=== PATIENT | female | born 1990 | race Caucasian/White ===

== ENCOUNTER 2017-04-26 14:27 | Emergency (ER) | payer MEDICAID ==
[~2017-04-26] VITALS: Ht 165.1 cm; Wt 67.3 kg
[~2017-04-26 14:27] MED LIST: ONDA4TAB6 PO
[2017-04-26 15:10] LABS: BASOPHILS % (AUTO) 0.4 % (0-1); EOSINOPHILS # (AUTO) 0.2 X10'3 (0-0.9); EOSINOPHILS % (AUTO) 2.8 % (0-6); HEMATOCRIT 38.4 % (35.0-45.0); HEMOGLOBIN 12.9 g/dl (12.0-16.0); LYMPHOCYTES # (AUTO) 2.6 X10'3 (1.1-4.8); MEAN CORPUSCULAR HGB CONC 33.6 % (33.0-36.5); MEAN CORPUSCULAR VOLUME 80.6 FL (78-98); MEAN PLATELET VOLUME 7.4 FL (7.4-10.4); MONOCYTES # (AUTO) 0.5 X10'3 (0-0.9); MONOCYTES % (AUTO) 5.7 % (2-12); NEUTROPHILS # (AUTO) 4.8 X10'3 (1.8-7.7); NEUTROPHILS % (AUTO) 59.1 % (42-75); PLATELET COUNT 350 X10'3 (140-440); RED BLOOD COUNT 4.76 X10'6 (4.20-5.60); RED CELL DISTRIBUTION WIDTH 15.4 % (11.5-14.5); WHITE BLOOD COUNT 8.1 X10'3 (4.5-11.0)
[2017-04-26 15:21] LABS: INR 1.1 INR; PARTIAL THROMBOPLASTIN TIME 25 SECONDS (22-32)
[2017-04-26 15:26] LABS: ALANINE AMINOTRANSFERASE 41 U/L (12-78); ALKALINE PHOSPHATASE 76 IU/L (46-116); ANION GAP 9 (8-16); ASPARTATE AMINO TRANSFERASE 18 U/L (10-37); BILIRUBIN,TOTAL 0.2 MG/DL (0.1-1.0); BLOOD UREA NITROGEN 9 MG/DL (7-18); BUN/CREATININE RATIO 14.8 (6.6-38.0); CALCIUM 9.3 MG/DL (8.5-10.1); CHLORIDE 107 MMOL/L (99-107); CREATININE 0.61 MG/DL (0.40-0.90); GLUCOSE 101 MG/DL (70-104); POTASSIUM 3.8 MMOL/L (3.5-5.1); SODIUM 143 MMOL/L (135-145); TOTAL CARBON DIOXIDE 26.9 MMOL/L (24-32); TOTAL PROTEIN 8.2 G/DL (6.4-8.2); eGFR > 90 ML/MIN
[2017-04-26 15:35] LABS: URINE HCG POSITIVE (NEG)
[2017-04-26 15:39] LABS: CLARITY,URINE CLEAR (Clear); COLOR,URINE YELLOW (Yellow); GLUCOSE, URINE NEGATIVE (Neg); KETONES,URINE NEGATIVE (Neg); LEUKOCYTE ESTERASE ,URINE NEGATIVE (Neg); NITRITES, URINE NEGATIVE (Neg); OCCULT BLOOD,URINE TRACE-INTACT (Neg); PH,URINE 5.5 (4.8-8.0); PROTEIN,URINE NEGATIVE (Neg); UROBILINOGEN,URINE 0.2 E.U/dL (0.2-1.0)
[2017-04-26 15:45] LABS: UA COLLECTION TYPE CLN CATCH MIDSTREAM
[2017-04-26 15:46] LABS: WBC,URINE 0-4 /HPF (0-4)
[2017-04-26 15:47] LABS: BACTERIA,URINE 3+ /HPF (Neg); MUCUS STRANDS MODERATE /LPF (Neg); RBC,URINE 0-2 /HPF (0-2); SQUAMOUS EPITHELIAL CELL,UR MANY /LPF (FEW)
[2017-04-26 15:50] LABS: URINE AMPHETAMINE SCREEN NEGATIVE (Neg); URINE BARBITUATE SCREEN NEGATIVE (Neg); URINE BENZODIAZEPINES SCREEN NEGATIVE (Neg); URINE CANNABINOID SCREEN NEGATIVE (Neg); URINE COCAINE SCREEN NEGATIVE (Neg); URINE METHADONE SCREEN NEGATIVE (Neg); URINE OPIATE SCREEN NEGATIVE (Neg); URINE PHENCYCLIDINE SCREEN NEGATIVE (Neg)
[2017-04-26 16:08] LABS: BETA HCG,QUANTITATIVE 3354 mIU/ml
[2017-04-26 16:48] VITALS: BP 119/53
== END 2017-04-26 16:50 | disposition home or self-care (01) ==
LOC: ER 14:28
DX: O46.92 Antepartum hemorrhage, unspecified, second trimester (principal); R30.0 Dysuria; R11.0 Nausea; Z79.899 Other long term (current) drug therapy; Z3A.20 20 weeks gestation of pregnancy
CPT/HCPCS: 36415; 76817; 80053; 80305; 81001; 81025; 84702; 85025; 85610; 85730; 86900; 86901; 99285

== ENCOUNTER 2017-04-29 11:09 | Emergency (ER) | payer MEDICAID ==
[~2017-04-29] VITALS: Ht 165.1 cm; Wt 63.0 kg
[2017-04-29 11:39] VITALS: BP 115/66
[2017-04-29 12:03] LABS: URINE HCG POSITIVE (NEG)
[2017-04-29 12:07] LABS: CLARITY,URINE SLIGHTLY CLOUDY (Clear); COLOR,URINE YELLOW (Yellow); GLUCOSE, URINE NEGATIVE (Neg); KETONES,URINE NEGATIVE (Neg); LEUKOCYTE ESTERASE ,URINE NEGATIVE (Neg); NITRITES, URINE NEGATIVE (Neg); OCCULT BLOOD,URINE LARGE (Neg); PH,URINE 6.5 (4.8-8.0); PROTEIN,URINE NEGATIVE (Neg); UROBILINOGEN,URINE 0.2 E.U/dL (0.2-1.0)
[2017-04-29 12:16] LABS: UA COLLECTION TYPE VOIDED
[2017-04-29 12:18] LABS: BACTERIA,URINE NONE SEEN /HPF (Neg); MUCUS STRANDS NONE SEEN /LPF (Neg); RBC,URINE 20-50 /HPF (0-2); SQUAMOUS EPITHELIAL CELL,UR FEW /LPF (FEW); WBC,URINE 0-4 /HPF (0-4)
[2017-04-29 14:03] LABS: BASOPHILS % (AUTO) 0.5 % (0-1); EOSINOPHILS # (AUTO) 0.1 X10'3 (0-0.9); EOSINOPHILS % (AUTO) 1.8 % (0-6); HEMATOCRIT 39.4 % (35.0-45.0); LYMPHOCYTES # (AUTO) 3.1 X10'3 (1.1-4.8); LYMPHOCYTES % (AUTO) 38.9 % (21-51); MEAN CORPUSCULAR HEMOGLOBIN 26.9 PG (27.0-31.0); MEAN CORPUSCULAR VOLUME 81.4 FL (78-98); MEAN PLATELET VOLUME 7.4 FL (7.4-10.4); MONOCYTES # (AUTO) 0.4 X10'3 (0-0.9); MONOCYTES % (AUTO) 4.8 % (2-12); NEUTROPHILS # (AUTO) 4.2 X10'3 (1.8-7.7); PLATELET COUNT 353 X10'3 (140-440); RED BLOOD COUNT 4.84 X10'6 (4.20-5.60); WHITE BLOOD COUNT 7.9 X10'3 (4.5-11.0)
[2017-04-29 14:37] LABS: ALANINE AMINOTRANSFERASE 40 U/L (12-78); ALBUMIN 4.1 G/DL (3.4-5.0); ALBUMIN/GLOBULIN RATIO 1.1 (1.1-1.5); ALKALINE PHOSPHATASE 70 IU/L (46-116); ANION GAP 10 (8-16); ASPARTATE AMINO TRANSFERASE 17 U/L (10-37); BILIRUBIN,TOTAL 0.3 MG/DL (0.1-1.0); BLOOD UREA NITROGEN 8 MG/DL (7-18); BUN/CREATININE RATIO 13.6 (6.6-38.0); CALCIUM 9.1 MG/DL (8.5-10.1); CHLORIDE 107 MMOL/L (99-107); CREATININE 0.59 MG/DL (0.40-0.90); GLUCOSE 102 MG/DL (70-104); POTASSIUM 3.6 MMOL/L (3.5-5.1); SODIUM 143 MMOL/L (135-145); TOTAL CARBON DIOXIDE 26.5 MMOL/L (24-32); TOTAL PROTEIN 7.9 G/DL (6.4-8.2); eGFR > 90 ML/MIN
[2017-04-29 14:38] LABS: BETA HCG,QUANTITATIVE 3832 mIU/ml
== END 2017-04-29 15:27 | disposition home or self-care (01) ==
LOC: ER 11:09
DX: O20.0 Threatened abortion (principal); Z3A.01 Less than 8 weeks gestation of pregnancy; Z98.890 Other specified postprocedural states
CPT/HCPCS: 36415; 80053; 81001; 81025; 84702; 85025; 99284

== ENCOUNTER 2017-05-01 15:09 | Emergency (ER) | payer MEDICAID ==
[~2017-05-01] VITALS: Ht 165.1 cm; Wt 67.0 kg
[2017-05-01 16:14] VITALS: BP 124/73
== END 2017-05-01 16:50 | disposition home or self-care (01) ==
LOC: ER 15:10
DX: O03.9 Complete or unspecified spontaneous abortion without complication (principal)
CPT/HCPCS: 36415; 84702; 99283

== ENCOUNTER → 2017-05-06 | Emergency (ER) | payer MEDICAID ==
[~2017-05-06] VITALS: Ht 165.1 cm; Wt 68.1 kg
[~2017-05-06] MED LIST changes: +morphine 4 MG/ML inj SYRINge IV ONE; +normal saline 1000ML IV soln IVB ONE; +ondansetron/PF 4mg/2ml inj IV ONE
[2017-05-06 20:16] LABS: BASOPHILS # (AUTO) 0.1 X10'3 (0-0.2); BASOPHILS % (AUTO) 0.5 % (0-1); EOSINOPHILS # (AUTO) 0.3 X10'3 (0-0.9); EOSINOPHILS % (AUTO) 2.5 % (0-6); HEMATOCRIT 37.8 % (35.0-45.0); HEMOGLOBIN 12.8 g/dl (12.0-16.0); LYMPHOCYTES # (AUTO) 4.3 X10'3 (1.1-4.8); LYMPHOCYTES % (AUTO) 39.4 % (21-51); MEAN CORPUSCULAR HEMOGLOBIN 27.1 PG (27.0-31.0); MEAN CORPUSCULAR HGB CONC 33.9 % (33.0-36.5); MEAN PLATELET VOLUME 7.2 FL (7.4-10.4); MONOCYTES # (AUTO) 0.6 X10'3 (0-0.9); MONOCYTES % (AUTO) 5.8 % (2-12); NEUTROPHILS # (AUTO) 5.6 X10'3 (1.8-7.7); NEUTROPHILS % (AUTO) 51.8 % (42-75); PLATELET COUNT 378 X10'3 (140-440); RED BLOOD COUNT 4.73 X10'6 (4.20-5.60); RED CELL DISTRIBUTION WIDTH 14.8 % (11.5-14.5); WHITE BLOOD COUNT 10.9 X10'3 (4.5-11.0)
[2017-05-06 20:22] LABS: PROTHROMBIN TIME 10.4 SECONDS (9.0-12.0)
[2017-05-06 20:28] LABS: ALANINE AMINOTRANSFERASE 28 U/L (12-78); ALBUMIN/GLOBULIN RATIO 1.1 (1.1-1.5); ALKALINE PHOSPHATASE 80 IU/L (46-116); ANION GAP 9 (8-16); ASPARTATE AMINO TRANSFERASE 14 U/L (10-37); BILIRUBIN,TOTAL 0.2 MG/DL (0.1-1.0); BLOOD UREA NITROGEN 8 MG/DL (7-18); BUN/CREATININE RATIO 11.9 (6.6-38.0); CHLORIDE 106 MMOL/L (99-107); CREATININE 0.67 MG/DL (0.40-0.90); GLUCOSE 110 MG/DL (70-104); POTASSIUM 3.8 MMOL/L (3.5-5.1); SODIUM 141 MMOL/L (135-145); TOTAL CARBON DIOXIDE 26.2 MMOL/L (24-32); TOTAL PROTEIN 7.8 G/DL (6.4-8.2); eGFR > 90 ML/MIN
[2017-05-06 20:29] LABS: CALCIUM 9.1 MG/DL (8.5-10.1)
[2017-05-06 21:19] LABS: BETA HCG,QUANTITATIVE 3097 mIU/ml
[2017-05-06 22:14] LABS: CLARITY,URINE CLEAR (Clear); COLOR,URINE YELLOW (Yellow); GLUCOSE, URINE NEGATIVE (Neg); KETONES,URINE NEGATIVE (Neg); LEUKOCYTE ESTERASE ,URINE NEGATIVE (Neg); NITRITES, URINE NEGATIVE (Neg); OCCULT BLOOD,URINE SMALL (Neg); PH,URINE 6.5 (4.8-8.0); PROTEIN,URINE NEGATIVE (Neg); UROBILINOGEN,URINE 0.2 E.U/dL (0.2-1.0)
[2017-05-06 22:15] LABS: UA COLLECTION TYPE CLN CATCH MIDSTREAM
[2017-05-06 22:28] LABS: BACTERIA,URINE FEW /HPF (Neg); MUCUS STRANDS NONE SEEN /LPF (Neg); RBC,URINE 0-2 /HPF (0-2); SQUAMOUS EPITHELIAL CELL,UR FEW /LPF (FEW); WBC,URINE 0-4 /HPF (0-4)
[2017-05-07 01:41] VITALS: BP 110/65
== END | disposition short-term general hospital (02) ==
LOC: ER 19:41
DX: O00.90 Unspecified ectopic pregnancy without intrauterine pregnancy (principal); Z3A.09 9 weeks gestation of pregnancy; Z98.890 Other specified postprocedural states
CPT/HCPCS: 36415; 76856; 80053; 81001; 85025; 85610; 86885; 86900; 86901; 96361; 96374; 96375; 96376; 99291; J2270; J2405; J7030; 84702

== ENCOUNTER 2019-01-03 13:49 | Emergency (ER) | payer MEDICAID ==
[~2019-01-03] VITALS: Ht 165.1 cm; Wt 65.0 kg
[~2019-01-03 13:49] MED LIST changes: -morphine 4 MG/ML inj SYRINge IV ONE; -normal saline 1000ML IV soln IVB ONE; -ondansetron/PF 4mg/2ml inj IV ONE
[2019-01-03 14:02] VITALS: BP 118/92
[2019-01-03] MEDS ORDERED: dexamethasone sod phosphate 10mg/ml inj IV STA (15:36)
[2019-01-03] MEDS ORDERED: metoclopramide 5 mg/ml inj IV ONE (15:40)
[2019-01-03] MEDS ORDERED: LORazepam 2 mg/ml vial IV ONE (15:40)
[2019-01-03] MEDS ORDERED: normal saline 1000ML IV soln IVB ONE (15:40)
[2019-01-03] MEDS ORDERED: ketorolac trometh. 30mg/ml inj. IV ONE (15:40)
== END 2019-01-03 16:09 | disposition home or self-care (01) ==
LOC: ER 13:50
DX: G43.909 Migraine, unspecified, not intractable, without status migrainosus (principal); Z98.890 Other specified postprocedural states; Z79.899 Other long term (current) drug therapy
CPT/HCPCS: 93005; 99283

== ENCOUNTER 2021-04-14 10:14 | Emergency (ER) | payer MEDICAID ==
[~2021-04-14] VITALS: Ht 165.1 cm; Wt 65.9 kg
[2021-04-14 10:44] LABS: URINE HCG NEGATIVE (NEG)
[2021-04-14 10:49] LABS: CLARITY,URINE SLIGHTLY CLOUDY (Clear); COLOR,URINE YELLOW (Yellow); GLUCOSE, URINE NEGATIVE (Neg); KETONES,URINE NEGATIVE (Neg); LEUKOCYTE ESTERASE ,URINE NEGATIVE (Neg); NITRITES, URINE NEGATIVE (Neg); OCCULT BLOOD,URINE NEGATIVE (Neg); PROTEIN,URINE NEGATIVE (Neg); UA COLLECTION TYPE CLN CATCH MIDSTREAM; UROBILINOGEN,URINE 0.2 E.U/dL (0.2-1.0)
[2021-04-14 11:03] LABS: MUCUS STRANDS FEW /LPF (Neg); SQUAMOUS EPITHELIAL CELL,UR MANY /LPF (FEW)
[2021-04-14 11:04] LABS: BACTERIA,URINE FEW /HPF (Neg); RBC,URINE 0-2 /HPF (0-2); WBC,URINE 0-4 /HPF (0-4)
[2021-04-14 11:20] LABS: BASOPHILS % (AUTO) 0.7 % (0-1); EOSINOPHILS # (AUTO) 0.1 X10'3 (0-0.9); EOSINOPHILS % (AUTO) 1.7 % (0-6); HEMATOCRIT 39.6 % (35.0-45.0); LYMPHOCYTES # (AUTO) 2.2 X10'3 (1.1-4.8); MEAN CORPUSCULAR HEMOGLOBIN 26.5 PG (27.0-31.0); MEAN CORPUSCULAR HGB CONC 32.9 g/dL (33.0-36.5); MEAN CORPUSCULAR VOLUME 80.7 FL (78-98); MONOCYTES # (AUTO) 0.4 X10'3 (0-0.9); MONOCYTES % (AUTO) 5.7 % (2-12); NEUTROPHILS # (AUTO) 4.1 X10'3 (1.8-7.7); NEUTROPHILS % (AUTO) 59.9 % (42-75); PLATELET COUNT 424 X10'3 (140-440); RED CELL DISTRIBUTION WIDTH 14.8 % (11.5-14.5); WHITE BLOOD COUNT 6.8 X10'3 (4.5-11.0)
[2021-04-14 11:48] LABS: ALANINE AMINOTRANSFERASE 22 U/L (12-78); ALBUMIN/GLOBULIN RATIO 1.2 (1.1-1.5); ALKALINE PHOSPHATASE 89 IU/L (46-116); ANION GAP 9 (8-16); ASPARTATE AMINO TRANSFERASE 13 U/L (10-37); BILIRUBIN,TOTAL 0.2 MG/DL (0.1-1.0); BLOOD UREA NITROGEN 10 MG/DL (7-18); BUN/CREATININE RATIO 16.4 (6.6-38.0); CALCIUM 9.5 MG/DL (8.5-10.1); CHLORIDE 106 MMOL/L (99-107); CREATININE 0.61 MG/DL (0.40-0.90); GLUCOSE 76 MG/DL (70-104); SODIUM 141 MMOL/L (135-145); TOTAL CARBON DIOXIDE 26.3 MMOL/L (24-32); TOTAL PROTEIN 7.4 G/DL (6.4-8.2); eGFR > 90 ML/MIN
[2021-04-14] MEDS ORDERED: HYDROcodone/acetaminophen 5mg/325mg tablet PO ONE (15:05)
[2021-04-14] MEDS ORDERED: ketorolac trometh inj. 60 MG/2 ML VIAL IM ONE (15:05)
[2021-04-14 15:20] VITALS: BP 122/80
== END 2021-04-14 15:20 | disposition home or self-care (01) ==
LOC: ER 10:14
DX: M54.50 Low back pain, unspecified (principal); R10.9 Unspecified abdominal pain; Z85.9 Personal history of malignant neoplasm, unspecified; Z86.11 Personal history of tuberculosis
CPT/HCPCS: 36415; 80053; 81001; 81025; 85025; 96372; 99283; J1885

== ENCOUNTER 2024-07-15 10:13 | Emergency (ER) | payer MEDICAID ==
[~2024-07-15] VITALS: Ht 165.1 cm; Wt 69.9 kg
[2024-07-15 10:20] VITALS: BP 138/100; PULSE 73; RESP 16; O2SAT 100
--- NOTE | 2024-07-15 10:29 | Physician Documentation ---
History of Present Illness ~ Chief Complaint: Wound Stated Complaint: UNKNOWN BUG BITE/SWOLLEN L LEG Time Seen by MD: 10:17 OK to notify your PCP?: Yes Primary Medical Doctor: PAULIE NOGUEIRA IS OB Source: patient, RN/, RN notes reviewed, old records Mode of Arrival: POV Exam Limitations: no limitations HPI This paitent is a 34 y/o female who presents to ED for a wound. Patient suspects she may have gotten a bug bite, and first noticed a wound to her left ankle last Tuesday on 07/07. Patient states that she had since gone to a hospital in [place], and was prescribed Bactrim. Patient states she has been taking this antibiotic as prescribed, however her wound continues to become more painful, red, and itchy. She has also been soaking the ankle in warm water with no improvement. Patient denies any other associated symptoms at this time. Patient denies any other alleviating or exacerbating factors. Tetanus within 5 years?: No Medication Reconciliation Allergies: Coded Allergies: No Known Allergies (Unverified , 07/15/24) Scheduled Doxycycline Hyclate (Doxycycline Hyclate), 1 CAP PO Q12H Rifampin (Rifampin), 1 CAP PO Q12H Past Medical History Past Medical History: *RENAL/*, Arthritis, Chronic Pain, Fibromyalgia Past Surgical History: abdominal surgery, orthopedic surgeries Other Past Surgical History: R salpingectomy Smoking Status: Never smoker Alcohol Use: None Drug Use: none Lives with: Family Lives In: Home Occupation: employed Review of Systems All Other Systems at this time: Reviewed and Negative Physical Exam Vital Signs: RN Vital Signs have been reviewed: Yes, Temperature: 97.6, Heart Rate: 73, Respiratory Rate: 16, BP: 138/100, Pulse Oximetry: 100, Weight: 69.900 Oxygen Flow Rate: 0 Physical Exam General: The patient is well developed, well nourished, nontoxic appearing and is in no acute distress. Skin: Left ankle with ley crusting, and wheeping lesion approximately 6x4cm and with surrounding erythema. Rest of skin is otherwise pink, warm and dry with no rashes. HEENT: Head was normocephalic and atraumatic. Eyes - pupils equal, round, reactive to light and accommodation. Extraocular movements were intact. Conjunctivae were nonicteric. The mouth and oropharynx were clear with moist mucous membranes. There were no pharyngeal exudates or erythema. Neck: Supple and nontender. There was no jugular venous distention, lymphadenopathy, thyromegaly or masses. Chest: Clear to auscultation bilaterally without wheezes, rales or rhonchi. No accessory muscle use. No dullness to percussion. Heart: Rate regular and rhythmic. S1, S2. No murmurs. Palpation of the chest wall was normal. No rubs or thrills. Abdomen: Soft, nontender and nondistended. Positive bowel sounds. No guarding or rebound. No hepatosplenomegaly or palpable masses. Extremities: (SEE SKIN) No cyanosis, clubbing or edema. The patient moves all extremities. Pulses were equal and symmetric. Neurologic: Cranial nerves II-XII were intact. Sensation was intact to light touch throughout. Motor strength was 5/5 in all four extremities. Deep tendon reflexes were intact in both upper and lower extremities. Psychologic: The patient was oriented to person, place and time. The patient demonstrated appropriate judgement and insight. Progress Results/Orders Reviewed/noted all lab results: Yes Results/Orders Orders - YURIY NOGUEIRA MD Cult (Aer) Routine C&S+Gram St (07/15/24 10:29) Completed Orders - YURIY NOGUEIRA MD Doxycycline 100mg Capsule (Vibramycin 10 (07/15/24 10:29) Rifampin Capsule (Rifampin Capsule) (07/15/24 10:30) Rifampin Capsule (Rifampin Capsule) (07/15/24 10:30) Vital Signs 07/15/24 07/15/24 10:20 11:41 Temp 97.6 97.6 Pulse 73 Resp 16 B/P (MAP) 138/100 Pulse Ox 100 O2 Flow Rate 0 Microbiology Date/Time Source Procedure Growth Status 07/15/24 11:28 Ankle Left Drainage Routine Culture - Preliminary Resulted Medical Decision Making Additional info obtained from: old records Differential Dx:Considerations: Include: Abscess, Cellulitis, Dressing change, Healing wound, Other Departure Time of Disposition: 10:32 Disposition: 01 HOME / SELF CARE / HOMELESS Impression: Primary Impression: Wound cellulitis Condition: Stable Discharge Instructions: Cellulitis, Adult Additional Instructions: Take new antibiotic as prescribed along with Bactrim. Follow up with your primary care doctor as soon as possible or return to ER for any new or worsening symptoms. Referrals: NO PRIMARY CARE PROVIDER (PCP) Prescriptions Rifampin (Rifampin) 300 Mg Capsule 1 CAP PO Q12H for 10 Days, #20 CAP 0 Refills Prov: YURIY NOGUEIRA MD 07/15/24 Doxycycline Hyclate (Doxycycline Hyclate) 100 Mg Capsule 1 CAP PO Q12H for 14 Days, #28 CAP Prov: YURIY NOGUEIRA MD 07/15/24 Signature Scribe Signature: Scribed for Yuriy Nogueira MD by Yuriy Nogueira MD . 07/15/24 10:31 Attestation: The note accurately reflects work and decisions made by me.Yuriy Nogueira MD 07/15/24 10:29 YURIY NOGUEIRA MD Jul 15, 2024 10:29
[2024-07-15] MEDS ORDERED: rifampin 300mg capsule PO SCH (10:30)
[2024-07-15] MEDS ORDERED: DOXY-1 PO (10:33)
[2024-07-15] MEDS ORDERED: RIFA300C65 PO (10:33)
[2024-07-15] MEDS: DOXYCYCLINE 100MG CAPSULE PO STA (10:38)
[2024-07-15] MEDS: rifampin 300mg capsule PO ONE (10:38)
[2024-07-15 11:41] VITALS: TEMP 97.6
== END 2024-07-15 11:42 | disposition home or self-care (01) ==
LOC: ER 10:13
DX: L03.116 Cellulitis of left lower limb (principal); M19.90 Unspecified osteoarthritis, unspecified site; M79.7 Fibromyalgia
CPT/HCPCS: 87070; 99283